=== PATIENT | female | born 1940 | race Asian ===

== ENCOUNTER 2018-05-30 09:18 | Inpatient (IN) | payer MEDICARE, OTHER ==
[2018-05-30 09:56] LABS: ADD MAN DIFF? NO
[2018-05-30] MEDS: SOD CHLORIDE 0.9% 1,000 ML IV ×2 (09:56→21:56)
[2018-05-30] MEDS: ONDANSETRON 4 MG INJ IV (09:56)
[2018-05-30 09:57] LABS: BASOPHILS % 0.1 % (0.0-2.0); EOSINOPHILS % 0.4 % (0.0-7.0); HEMOGLOBIN 12.4 g/dl (12.0-16.0); LYMPHOCYTES # 0.7 10^3/ul (0.8-2.9); LYMPHOCYTES % 10.5 % (15.0-51.0); MEAN CORPUSCULAR HEMOGLOBIN 29.5 pg (29.0-33.0); MEAN CORPUSCULAR HGB CONC 34.4 g/dl (32.0-37.0); MEAN CORPUSCULAR VOLUME 85.7 fl (82.0-101.0); MEAN PLATELET VOLUME 9.3 fl (7.4-10.4); MONOCYTE # 0.5 10^3/ul (0.3-0.9); MONOCYTES % 7.5 % (0.0-11.0); NEUTROPHIL # 5.5 10^3/ul (1.6-7.5); NEUTROPHILS % 81.2 % (39.0-77.0); PLATELET COUNT 269 10^3/UL (140-415); RED CELL DISTRIBUTION WIDTH 11.6 % (11.5-14.5)
[2018-05-30 09:57] LABS: WHITE BLOOD COUNT 6.8 10^3/ul (4.8-10.8)
[2018-05-30] MEDS: MECLIZINE 12.5 MG TAB PO (09:57)
[2018-05-30 10:16] LABS: ANION GAP 11 (5-13); BLOOD UREA NITROGEN 12 mg/dl (7-20); CALCIUM 8.8 mg/dl (8.4-10.2); CARBON DIOXIDE 29 mmol/L (21-31); CHLORIDE 84 mmol/L (97-110); CREATININE 0.75 mg/dl (0.44-1.00); GLUCOSE 190 mg/dl (70-220); POTASSIUM 4.3 mmol/L (3.5-5.1); SODIUM 124 mmol/L (135-144)
[2018-05-30] MEDS: METOCLOPRAMIDE 10 MG INJ IV (10:30)
[2018-05-30] MEDS ORDERED: ACETAMINOPHEN 325 MG TAB PO (14:30)
[2018-05-30] MEDS ORDERED: ONDANSETRON 4 MG INJ IV (14:30)
[2018-05-30] MEDS: NICARDipine HCL 30 MG CAPSULE PO (15:01)
[2018-05-30] MEDS ORDERED: ALBUTEROL/IPRATROPIUM (NEB) 3 ML AMP HHN (18:00)
[2018-05-30 18:47] LABS: ALANINE AMINOTRANSFERASE 31 IU/L (13-69); ALBUMIN 4.2 g/dl (3.3-4.9); ALBUMIN/GLOBULIN RATIO 1.55; ALKALINE PHOSPHATASE 62 IU/L (42-121); ANION GAP 12 (5-13); ASPARTATE AMINO TRANSFERASE 28 IU/L (15-46); BILIRUBIN,INDIRECT 0.5 mg/dl (0-1.1); BILIRUBIN,TOTAL 0.5 mg/dl (0.2-1.3); BLOOD UREA NITROGEN 11 mg/dl (7-20); CALCIUM 8.8 mg/dl (8.4-10.2); CARBON DIOXIDE 29 mmol/L (21-31); CHLORIDE 92 mmol/L (97-110); CREATININE 0.72 mg/dl (0.44-1.00); GLUCOSE 115 mg/dl (70-220); POTASSIUM 3.8 mmol/L (3.5-5.1); SODIUM 133 mmol/L (135-144); TOTAL PROTEIN 6.9 g/dl (6.1-8.1)
[2018-05-30] MEDS ORDERED: GLUCOSE GEL 15 GRAM TUBE PO ×2 (20:00)
[2018-05-30] MEDS ORDERED: GLUCOSE GEL 15 GRAM TUBE BUCCAL (20:00)
[2018-05-30] MEDS ORDERED: GLUCAGON 1 MG INJ IM (20:00)
[2018-05-30] MEDS ORDERED: DEXTROSE 50% 50 ML SYRINGE IV ×2 (20:00)
[2018-05-30] MEDS ORDERED: ZOLPIDEM 5 MG TAB PO (20:30)
[2018-05-30] MEDS: ACCU-CHEK XX (21:00)
[2018-05-30] MEDS: ALBUTEROL/IPRATROPIUM (NEB) 3 ML AMP HHN (21:53)
[2018-05-30] MEDS: ATORVASTATIN 10 MG TAB PO (21:57)
[2018-05-30] MEDS: MONTELUKAST 10 MG TAB PO (21:57)
[2018-05-30] MEDS: metFORMIN 500 MG TAB PO (22:20)
[2018-05-30] MEDS: AMLODIPINE 5 MG TAB PO (22:21)
[2018-05-31 05:35] LABS: ADD MAN DIFF? NO
[2018-05-31 05:58] LABS: WHITE BLOOD COUNT 6.2 10^3/ul (4.8-10.8)
[2018-05-31 05:58] LABS: BASOPHILS % 0.6 % (0.0-2.0); EOSINOPHILS # 0.1 10^3/ul (0.0-0.5); EOSINOPHILS % 2.2 % (0.0-7.0); HEMOGLOBIN 12.4 g/dl (12.0-16.0); LYMPHOCYTES # 1.1 10^3/ul (0.8-2.9); LYMPHOCYTES % 17.8 % (15.0-51.0); MEAN CORPUSCULAR HEMOGLOBIN 29.2 pg (29.0-33.0); MEAN CORPUSCULAR HGB CONC 33.5 g/dl (32.0-37.0); MEAN CORPUSCULAR VOLUME 87.3 fl (82.0-101.0); MEAN PLATELET VOLUME 9.5 fl (7.4-10.4); MONOCYTE # 0.9 10^3/ul (0.3-0.9); MONOCYTES % 14.1 % (0.0-11.0); PLATELET COUNT 277 10^3/UL (140-415); RED BLOOD COUNT 4.24 10^6/ul (4.20-5.40); RED CELL DISTRIBUTION WIDTH 12.1 % (11.5-14.5)
[2018-05-31 06:34] LABS: ALANINE AMINOTRANSFERASE 27 IU/L (13-69); ALBUMIN 3.9 g/dl (3.3-4.9); ALBUMIN/GLOBULIN RATIO 1.25; ALKALINE PHOSPHATASE 62 IU/L (42-121); ANION GAP 8 (5-13); ASPARTATE AMINO TRANSFERASE 28 IU/L (15-46); BILIRUBIN,INDIRECT 0.2 mg/dl (0-1.1); BILIRUBIN,TOTAL 0.2 mg/dl (0.2-1.3); BLOOD UREA NITROGEN 12 mg/dl (7-20); CALCIUM 8.7 mg/dl (8.4-10.2); CARBON DIOXIDE 30 mmol/L (21-31); CHLORIDE 99 mmol/L (97-110); CREATININE 0.79 mg/dl (0.44-1.00); GLUCOSE 130 mg/dl (70-220); POTASSIUM 3.9 mmol/L (3.5-5.1); SODIUM 137 mmol/L (135-144)
[2018-05-31] MEDS: LEVOTHYROXINE 112 MCG TAB PO (06:45)
[2018-05-31] MEDS: ACCU-CHEK XX ×4 (08:37→20:37)
[2018-05-31] MEDS: LOSARTAN 50 MG TAB PO (08:48)
[2018-05-31] MEDS: AMLODIPINE 5 MG TAB PO ×2 (08:48→20:36)
[2018-05-31] MEDS: metFORMIN 500 MG TAB PO ×2 (08:48→17:30)
[2018-05-31] MEDS: PANTOPRAZOLE (EC) 40 MG TAB PO (08:48)
[2018-05-31] MEDS: SOD CHLORIDE 0.9% 1,000 ML IV ×2 (08:49→12:50)
[2018-05-31] MEDS: ALBUTEROL/IPRATROPIUM (NEB) 3 ML AMP HHN ×2 (09:26→19:55)
[2018-05-31] MEDS: ATORVASTATIN 10 MG TAB PO (20:35)
[2018-05-31] MEDS: MONTELUKAST 10 MG TAB PO (20:35)
[2018-06-01] MEDS: SOD CHLORIDE 0.9% 1,000 ML IV ×2 (01:19→10:00)
[2018-06-01] MEDS: PANTOPRAZOLE (EC) 40 MG TAB PO (06:31)
[2018-06-01] MEDS: LEVOTHYROXINE 112 MCG TAB PO (06:31)
[2018-06-01] MEDS: ACCU-CHEK XX ×4 (07:30→21:00)
[2018-06-01] MEDS: ALBUTEROL/IPRATROPIUM (NEB) 3 ML AMP HHN ×2 (08:15→20:02)
[2018-06-01] MEDS: metFORMIN 500 MG TAB PO ×2 (08:17→17:40)
[2018-06-01] MEDS: MECLIZINE 25 MG TAB PO ×2 (08:26→20:40)
[2018-06-01] MEDS: LOSARTAN 50 MG TAB PO (08:26)
[2018-06-01] MEDS: AMLODIPINE 5 MG TAB PO ×2 (08:26→20:41)
[2018-06-01 11:27] LABS: ADD MAN DIFF? NO
[2018-06-01 11:32] LABS: WHITE BLOOD COUNT 10.5 10^3/ul (4.8-10.8)
[2018-06-01 11:32] LABS: BASOPHIL # 0.1 10^3/ul (0.0-0.1); BASOPHILS % 0.5 % (0.0-2.0); EOSINOPHILS # 0.1 10^3/ul (0.0-0.5); EOSINOPHILS % 0.7 % (0.0-7.0); HEMATOCRIT 38.2 % (37.0-47.0); HEMOGLOBIN 12.7 g/dl (12.0-16.0); LYMPHOCYTES # 0.9 10^3/ul (0.8-2.9); LYMPHOCYTES % 8.8 % (15.0-51.0); MEAN CORPUSCULAR HEMOGLOBIN 29.3 pg (29.0-33.0); MEAN CORPUSCULAR HGB CONC 33.2 g/dl (32.0-37.0); MEAN CORPUSCULAR VOLUME 88.2 fl (82.0-101.0); MEAN PLATELET VOLUME 8.9 fl (7.4-10.4); MONOCYTE # 1.2 10^3/ul (0.3-0.9); NEUTROPHIL # 8.3 10^3/ul (1.6-7.5); NEUTROPHILS % 78.7 % (39.0-77.0); PLATELET COUNT 273 10^3/UL (140-415); RED BLOOD COUNT 4.33 10^6/ul (4.20-5.40); RED CELL DISTRIBUTION WIDTH 12.2 % (11.5-14.5)
[2018-06-01 11:50] LABS: ANION GAP 15 (5-13); BLOOD UREA NITROGEN 11 mg/dl (7-20); CALCIUM 9.2 mg/dl (8.4-10.2); CARBON DIOXIDE 27 mmol/L (21-31); CHLORIDE 94 mmol/L (97-110); CREATININE 0.69 mg/dl (0.44-1.00); GLUCOSE 137 mg/dl (70-220); POTASSIUM 4.1 mmol/L (3.5-5.1); SODIUM 136 mmol/L (135-144)
[2018-06-01] MEDS: PROMETHAZINE/CODEINE 5ML CUP PO ×2 (14:27→20:52)
[2018-06-01] MEDS: CEFTRIAXONE 1 GM INJ IM (15:29)
[2018-06-01] MEDS ORDERED: ZOLPIDEM 5 MG TAB PO (16:30)
[2018-06-01] MEDS: FUROSEMIDE 20 MG TAB PO (17:50)
[2018-06-01] MEDS: predniSONE 20 MG TAB PO (17:50)
[2018-06-01] MEDS: CEPHALEXIN 250 MG CAP PO ×2 (19:52→23:54)
[2018-06-01] MEDS: TIOTROPIUM 18 MCG CAPSULE INHA DEV INH (19:53)
[2018-06-01] MEDS: MONTELUKAST 10 MG TAB PO (20:40)
[2018-06-01] MEDS: ATORVASTATIN 10 MG TAB PO (20:41)
[2018-06-02 05:17] LABS: ADD MAN DIFF? NO; BASOPHILS % 0.1 % (0.0-2.0); HEMOGLOBIN 13.5 g/dl (12.0-16.0); LYMPHOCYTES # 0.7 10^3/ul (0.8-2.9); LYMPHOCYTES % 5.7 % (15.0-51.0); MEAN CORPUSCULAR HEMOGLOBIN 29.4 pg (29.0-33.0); MEAN CORPUSCULAR HGB CONC 33.8 g/dl (32.0-37.0); MEAN CORPUSCULAR VOLUME 87.1 fl (82.0-101.0); MEAN PLATELET VOLUME 9.3 fl (7.4-10.4); MONOCYTE # 0.1 10^3/ul (0.3-0.9); NEUTROPHIL # 10.9 10^3/ul (1.6-7.5); NEUTROPHILS % 92.7 % (39.0-77.0); PLATELET COUNT 279 10^3/UL (140-415); RED BLOOD COUNT 4.59 10^6/ul (4.20-5.40); RED CELL DISTRIBUTION WIDTH 12.4 % (11.5-14.5)
[2018-06-02 05:17] LABS: WHITE BLOOD COUNT 11.7 10^3/ul (4.8-10.8)
[2018-06-02 05:53] LABS: ANION GAP 13 (5-13); BLOOD UREA NITROGEN 17 mg/dl (7-20); CARBON DIOXIDE 28 mmol/L (21-31); CHLORIDE 96 mmol/L (97-110); CREATININE 0.77 mg/dl (0.44-1.00); GLUCOSE 198 mg/dl (70-220); POTASSIUM 4.6 mmol/L (3.5-5.1); SODIUM 137 mmol/L (135-144)
[2018-06-02] MEDS: PANTOPRAZOLE (EC) 40 MG TAB PO (06:23)
[2018-06-02] MEDS: CEPHALEXIN 250 MG CAP PO ×3 (06:23→18:11)
[2018-06-02] MEDS: LEVOTHYROXINE 112 MCG TAB PO (06:23)
[2018-06-02] MEDS: ACCU-CHEK XX ×3 (07:30→17:22)
[2018-06-02] MEDS: metFORMIN 500 MG TAB PO ×2 (07:58→17:25)
[2018-06-02] MEDS: TIOTROPIUM 18 MCG CAPSULE INHA DEV INH (08:43)
[2018-06-02] MEDS: LOSARTAN 50 MG TAB PO (08:43)
[2018-06-02] MEDS: MECLIZINE 25 MG TAB PO (08:43)
[2018-06-02] MEDS: AMLODIPINE 5 MG TAB PO (08:43)
[2018-06-02] MEDS: ALBUTEROL/IPRATROPIUM (NEB) 3 ML AMP HHN (09:50)
== END 2018-06-02 19:40 | disposition home or self-care (01) | DRG 641 ==
LOC: E/R 09:18 → PP2 14:27
DX: E87.1 Hypo-osmolality and hyponatremia (principal); H83.09 Labyrinthitis, unspecified ear; I10 Essential (primary) hypertension; E11.9 Type 2 diabetes mellitus without complications; J44.9 Chronic obstructive pulmonary disease, unspecified; Z79.82 Long term (current) use of aspirin; Z79.84 Long term (current) use of oral hypoglycemic drugs; Z90.49 Acquired absence of other specified parts of digestive tract
CPT/HCPCS: 36415; 70450; 71045; 80048; 80053; 82962; 85025; 94640; 94664; 96374; 96375; 99285-25; G0378

== ENCOUNTER 2019-02-12 11:41 | Day surgery (SDC) | payer MEDICARE, OTHER ==
[2019-02-12] MEDS ORDERED: PROPOFOL 40 ML (13:30)
== END 2019-02-12 15:29 | disposition home or self-care (01) ==
LOC: GIL 11:41
DX: D12.3 Benign neoplasm of transverse colon (principal); K64.8 Other hemorrhoids; I10 Essential (primary) hypertension; E03.9 Hypothyroidism, unspecified; J44.9 Chronic obstructive pulmonary disease, unspecified; F17.200 Nicotine dependence, unspecified, uncomplicated
CPT/HCPCS: 45380; 82962; 88305